=== PATIENT | male | born 1955 | race Hispanic/Latino ===

== ENCOUNTER 2018-08-19 11:04 | Observation (INO) | payer OTHER ==
[2018-08-19 11:17] VITALS: BMI 31.8
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
[2018-08-19 12:06] LABS: ALB/GLOB RATIO 1.3 (1.1-1.8); ALBUMIN 4.3 g/dL (3.0-4.8); ALT/SGPT 107 U/L (7-56); AST/SGOT 81 U/L (17-59); BLOOD UREA NITROGEN 10 mg/dL (7-21); CALCIUM 9.2 mg/dL (8.4-10.5); GFR NON-AFRICAN AMERICAN > 60
[2018-08-19 12:10] LABS: VENOUS BLOOD GAS BASE EXCESS -8.3 mmol/L (0.0-2.0); VENOUS BLOOD GAS PO2 78 mm/Hg (30-55)
[2018-08-19 12:17] LABS: BASO % 0.5 % (0.0-3.0); EOS # 0.2 (0.0-0.7); EOS % 2.9 % (1.5-5.0); GRAN # 4.18 (1.4-6.5); HEMOGLOBIN 9.2 g/dL (14.0-18.0); LYMPH # 1.4 (1.2-3.4); LYMPH % 22.5 % (22.0-35.0); MEAN CORPUSCULAR HEMOGLOBIN 30.6 pg (25.0-35.0); MEAN CORPUSCULAR HGB CONC 31.8 g/dl (31.0-37.0); MEAN PLATELET VOLUME 10.8 fl (7.0-11.0); MONO # 0.4 (0.1-0.6); MONO % 7.1 % (1.0-6.0); RBC 3.01 10^6/uL (3.5-6.1); RED CELL DISTRIBUTION WIDTH 15.3 % (11.5-14.5); WHITE BLOOD COUNT 6.2 10^3/ul (4.5-11.0)
[2018-08-19 12:18] LABS: BASO # 0.03 K/mm3 (0.0-2.0)
[2018-08-19 12:19] LABS: PARTIAL THROMBOPLASTIN TIME 54.8 Seconds (25.1-36.5)
[2018-08-19 12:25] LABS: INR 11.94; PROTHROMBIN TIME 144.4 SECONDS (9.4-12.5)
[2018-08-19] MEDS ORDERED: Phytonadione 10 MG in Sodium Chloride 0.9% 50 ML IV ONE (12:28)
[2018-08-19] MEDS ORDERED: oxyCODONE 10 mg Immediate Release Tab PO STA (13:39)
[2018-08-19] MEDS ORDERED: Pneumococcal 23-Valent Vaccine IM ONE (18:19)
[2018-08-19] MEDS ORDERED: Influenza Vaccine 60 mcg/0.5 mL SYR (4YR UP) IM ONE (18:19)
[2018-08-19] MEDS: Oxycodone/Acetaminophen 10/325 mg Tab PO PRN (20:14)
[2018-08-20] MEDS: Oxycodone/Acetaminophen 10/325 mg Tab PO PRN (02:15)
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
[2018-08-20 08:21] VITALS: PULSE 72; RESP 20; TEMP 97.6; O2SAT 96
[2018-08-20] MEDS ORDERED: Non Formulary Medication (Rosuvastatin Calcium [Crestor] 5 MG) PO SCH (10:00)
[2018-08-20 10:11] LABS: INR 1.26; PARTIAL THROMBOPLASTIN TIME 35.9 Seconds (25.1-36.5); PROTHROMBIN TIME 14.6 SECONDS (9.4-12.5)
[2018-08-20 10:39] VITALS: BP 110/62
--- NOTE | 2018-08-20 15:29 | CON ---
NEUROLOGY CONSULTATION DATE OF CONSULTATION: 08/20/2018 REASON FOR CONSULTATION: Head trauma. HISTORY OF PRESENT ILLNESS: The patient is a 63-year-old male who we have been asked for evaluation of head trauma. The patient apparently fell about 10 days ago from the stairs and fractured his cervical spine. At that time, the patient had MRA and CT angiogram done, which reveals evidence of vertebral artery dissection. The patient was put on Coumadin and was sent home. The patient had INR checked by her primary care physician and it was 12 and the patient was brought into the hospital for close observation. The patient denies any bleeding from any orifices. Denies any headache or dizziness. The patient had repeat CT angiogram done in the hospital, which does not show any evidence of dissection or occlusion of the vertebral arteries. The patient denies having any headache. Does complain of mild neck pain. Denies any focal weakness in arms or legs. He feels fine besides some neck discomfort. The patient is wearing hard cervical collar. PAST MEDICAL HISTORY: Hypercholesterolemia, hypertension, and gout. FAMILY HISTORY: Reviewed and noncontributory to the case. SOCIAL HISTORY: Denies smoking, alcohol or illicit drugs. MEDICATIONS: Warfarin, which is held now. Colchicine, OxyContin, Crestor and lisinopril. ALLERGIES: NO KNOWN DRUG ALLERGIES. PHYSICAL EXAMINATION: The patient is a middle-aged pleasant male sitting in no acute distress. His blood pressure is 104/63, heart rate 72 per minute, breathing at the rate of 16, temperature is 97.6 degrees Fahrenheit. HEENT exam, head is normocephalic. There is a sutured laceration on the left frontal scalp with pasha. Neck is in a hard cervical collar. Lungs are clear. CVS exam, S1 and S2 audible. No murmurs. Abdomen is soft and nontender. Bowel sounds are present. NEUROLOGIC EXAMINATION: MENTAL STATUS: The patient is awake and alert, oriented to time, place and person. Speech is fluent. Naming, repetition normal. Memory and cognition are intact. CRANIAL NERVE EXAMINATION: Pupils are 4 mm bilaterally, reactive to light. Visual jane are full. Extraocular movements are intact. There is no facial asymmetry. Palate is upgoing bilaterally and tongue is midline. MOTOR EXAMINATION: Tone is normal. Power is 5/5 bilaterally in all extremities. Reflexes +2 and symmetrical. Plantars downgoing bilaterally. Gait is narrow based. LABORATORY DATA: Reviewed, shows WBC 6.2, hemoglobin 9.2, hematocrit 28.9 and platelets of 339. His INR was 11.94 yesterday. His sodium is 137, potassium 4.2, chloride 100, carbon dioxide content 27, BUN of 10, creatinine 0.7 and glucose of 97. The patient had a CT angiogram of neck done yesterday, which shows fracture of C2. There is no evidence of vertebral artery compression or occlusion at the level of the fracture. IMPRESSION: 1. Status post fall with head trauma. 2. Cervical spine fracture. 3. Vertebral artery dissection, which was noted on the imaging studies in [facility], which could not be reproduced, and the CT angiogram, which was repeated on 08/19/2018. RECOMMENDATIONS: 1. The patient's INR needs to be stabilized. 2. At this moment, since repeat CT angiogram does not reveal any evidence of dissection at the moment, we will consider starting the patient on antiplatelet agent with aspirin 325 mg once a day. 3. The patient my need to have repeat CT angiogram to be done in [facility] in the next week to 10 days, which needs to be compared to the previous CT angiogram and possibly with a CT angiogram done yesterday to come to the conclusion whether the patient really does have a vertebral artery dissection or not. 4. Please continue supportive care and other treatment. Thank you for the opportunity to participate in the care of this patient. Elisa Barcenas MD [place]
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
== END 2018-08-20 15:40 | disposition home or self-care (01) ==
LOC: ED 11:04 → ERH 12:35 → 5RSO 14:29
PROVIDERS: ADMIT Internal Medicine; ATTEND Internal Medicine
DX: R79.1 Abnormal coagulation profile (principal); T45.515A Adverse effect of anticoagulants, initial encounter; I77.74 Dissection of vertebral artery; Z79.01 Long term (current) use of anticoagulants; M10.9 Gout, unspecified; E78.00 Pure hypercholesterolemia, unspecified; I10 Essential (primary) hypertension; S12.100D Unspecified displaced fracture of second cervical vertebra, subsequent encounter for fracture with routine healing; W19.XXXD Unspecified fall, subsequent encounter; Z85.820 Personal history of malignant melanoma of skin
CPT/HCPCS: 36415; 36430; 80053; 82803; 85025; 85610; 85730; 86850; 86900; 96374; 99282; G0378; J3430; P9017

== ENCOUNTER 2018-11-07 12:42 | Outpatient (CLI) | payer OTHER | END 2018-11-07 12:43 | disposition home or self-care (01) | LOC: RAD 12:42 ==

== ENCOUNTER 2018-11-09 06:07 | Outpatient (CLI) | payer OTHER | END 2018-11-09 06:08 | disposition home or self-care (01) | LOC: CARDIO 06:07 | DX: R94.31 Abnormal electrocardiogram [ECG] [EKG] (principal); Z01.810 Encounter for preprocedural cardiovascular examination; E78.00 Pure hypercholesterolemia, unspecified; Z79.82 Long term (current) use of aspirin; I10 Essential (primary) hypertension; Z79.899 Other long term (current) drug therapy; Z98.1 Arthrodesis status ==

== ENCOUNTER 2018-11-11 07:17 | Outpatient (CLI) | payer OTHER | END 2018-11-11 07:18 | disposition home or self-care (01) | LOC: LAB 07:17 ==

== ENCOUNTER 2019-03-14 14:10 | Outpatient (CLI) | payer OTHER | END 2019-03-14 14:11 | disposition home or self-care (01) | LOC: RAD 14:10 ==